=== PATIENT | female | born 1930 | race Hispanic/Latino ===

== ENCOUNTER 2017-05-28 15:58 | Emergency (ER) | payer OTHER ==
[2017-05-28 16:43] VITALS: BMI 22.1
[2017-05-28 20:14] VITALS: PULSE 80; RESP 18; TEMP 98.3
--- NOTE | 2017-05-28 21:40 | ED PDOC ---
Arrival/HPI - General Chief Complaint: Upper Extremity Problem/Injury Time Seen by Provider: 05/28/17 18:02 Historian: Patient - History of Present Illness Narrative History of Present Illness (Text): 05/28/17 21:37 87yo female with PMHx of CAD and cardiac stent present with complaint of right sided ribs pain s/p trauma. Patient states she fell while going down stairs and hit her right ribs against the stair railing while trying to hold on to the railing. The daughter was there when she fell. She denies LOC, focal weakness, back pain, any other complaint. Past Medical History - Provider Review Nursing Documentation Reviewed: Yes - Infectious Disease Hx of Infectious Diseases: None - Tetanus Immunization Tetanus Immunization: Up to Date - Cardiac Hx [place]: Yes (stent) Hx Hypertension: Yes Hx Internal Defibrillator: Yes Hx Pacemaker: Yes Other/Comment: defibrillator. stent placement - Musculoskeletal/Rheumatological Hx Falls: Yes - Psychiatric Hx Depression: No Hx Emotional Abuse: No Hx Physical Abuse: No Hx Substance Use: No - Past Surgical History Past Surgical History: No Previous - Surgical History Hx Cardiac Catheterization: Yes Hx Coronary Stent: Yes (x1) - Anesthesia Hx Anesthesia: Yes Hx Anesthesia Reactions: No Hx Malignant Hyperthermia: No - Suicidal Assessment Feels Threatened In Home Enviroment: No Family/Social History - Physician Review Nursing Documentation Reviewed: Yes Family/Social History: Unknown Family HX Smoking Status: Never Smoked Hx Alcohol Use: Yes (1 glass wine daily) Hx Substance Use: No Hx Substance Use Treatment: No Allergies/Home Meds Allergies/Adverse Reactions: Allergies No Known Allergies Allergy (Verified 12/29/12 11:05) Home Medications: Home Meds Medication Instructions Recorded Confirmed Metoprolol Succinate [Toprol XL] 50 mg PO DAILY 12/29/12 05/28/17 Potassium Chloride [K-Dur 20] 20 meq PO DAILY 12/29/12 05/28/17 Warfarin [Coumadin] 2.5 mg PO DAILY 12/29/12 05/28/17 Aspirin [Ecotrin] 1 tab PO DAILY 05/28/17 05/28/17 Folic Acid [Folic Acid] 1 tab PO DAILY 05/28/17 05/28/17 Lisinopril/Hydrochlorothiazide 1 tab PO DAILY 05/28/17 05/28/17 [Lisinopril-Hctz 10-12.5 mg Tab] Simvastatin [Zocor] 1 tab PO DAILY 05/28/17 05/28/17 Review of Systems - Physician Review All systems were reviewed & negative as marked: Yes - Review of Systems Constitutional: Normal Eyes: Normal ENT: Normal Respiratory: Normal Cardiovascular: Normal Gastrointestinal: Normal Genitourinary Female: Normal Musculoskeletal: Arthralgias (Right rib pain) Skin: Normal Neurological: Normal Endocrine: Normal Hemo/Lymphatic: Normal Psychiatric: Normal Physical Exam Vital Signs Reviewed: Yes Vital Signs Temp Pulse Resp BP Pulse Ox 05/28/17 20:14 80 18 138/70 99 05/28/17 15:59 98.3 F 76 18 146/76 98 Temperature: Afebrile Blood Pressure: Normal Pulse: Regular Respiratory Rate: Normal Appearance: Positive for: Well-Appearing, Non-Toxic, Comfortable Pain Distress: None Mental Status: Positive for: Alert and Oriented X 3 - Systems Exam Head: Present: Atraumatic, Normocephalic Pupils: Present: PERRL Extroacular Muscles: Present: EOMI Conjunctiva: Present: Normal Mouth: Present: Moist Mucous Membranes Neck: Present: Normal Range of Motion Respiratory/Chest: Present: Clear to Auscultation, Good Air Exchange, Tender to Palpation (Right lateral rib). No: Respiratory Distress, Accessory Muscle Use, Wheezes, Decreased Breath Sounds, Rales, Retracting, Rhonchi Cardiovascular: Present: Regular Rate and Rhythm, Normal S1, S2. No: Murmurs Abdomen: Present: Normal Bowel Sounds. No: Tenderness, Distention, Peritoneal Signs Back: Present: Normal Inspection Upper Extremity: Present: Normal Inspection. No: Cyanosis, Edema Lower Extremity: Present: Normal Inspection. No: Edema Neurological: Present: GCS=15, CN II-XII Intact, Speech Normal, Motor Func Grossly Intact, Normal Sensory Function, Normal Cerebellar Funct, Memory Normal , Other (No focal neurological deficit) Skin: Present: Warm, Dry, Normal Color. No: Rashes Psychiatric: Present: Alert, Oriented x 3, Normal Insight, Normal Concentration Medical Decision Making ED Course and Treatment: 05/28/17 21:40 right rib series - 3rd rib fracture noted Head CT no acute finding. Result was DW the pt. Pt was told that they could be possible fracture of more ribs. Rx of Tramadol given. Referred to her PMD. - RAD Interpretation Radiology Orders: 05/28/17 18:02 HEAD W/O CONTRAST [CT] Stat RIBS RIGHT & PA CHEST [RAD] Stat 05/28/17 18:03 SHOULDER RIGHT [RAD] Stat - Medication Orders Current Medication Orders: Discontinued Medications Tramadol HCl (Ultram) 50 mg PO STAT STA Stop: 05/28/17 18:04 Last Admin: 05/28/17 18:36 Dose: 50 mg MAR Pain Assessment Document 05/28/17 18:36 SRE (Rec: 05/28/17 18:37 SRE [id number]) Pain Reassessment Is this a pain reassessment? Yes Sleep Is patient sleeping during reassessment? No Presence of Pain Presence of Pain Yes Pain Scale Used Pain Scale Used Numeric Location Left, Right or Bilateral Right Pain Location Body Site Chest Description Description Constant Disposition/Present on Arrival - Present on Arrival Any Indicators Present on Arrival: No History of DVT/PE: No History of Uncontrolled Diabetes: No Urinary Catheter: No History of Decub. Ulcer: No History Surgical Site Infection Following: None - Disposition Have Diagnosis and Disposition been Completed?: Yes Diagnosis: Rib fracture Disposition: HOME/ ROUTINE Disposition Time: 21:25 Patient Plan: Discharge Condition: STABLE Discharge Instructions (ExitCare): Rib Fracture (ED) Additional Instructions: Follow up with your doctor Return to ED for any new or worsening symptoms Prescriptions: traMADol [Ultram] 50 mg PO TID #12 tab Referrals: Van Ramon MD [Primary Care Provider] - Follow up with primary
[2017-05-28 22:11] VITALS: BP 135/80; O2SAT 100
--- NOTE | 2017-05-29 07:51 | CT ---
PROCEDURE: CT HEAD WITHOUT CONTRAST. HISTORY: head injury COMPARISON: 12/30/2012 TECHNIQUE: Axial computed tomography images were obtained through the head/brain without intravenous contrast. Radiation dose: Total exam DLP = 1013 mGy-cm. This CT exam was performed using one or more of the following dose reduction techniques: Automated exposure control, adjustment of the mA and/or kV according to patient size, and/or use of iterative reconstruction technique. FINDINGS: HEMORRHAGE: No intracranial hemorrhage. BRAIN: No mass effect or edema. Severe chronic microvascular changes are seen. There is mild atrophy VENTRICLES: Unremarkable. No hydrocephalus. CALVARIUM: Unremarkable. PARANASAL SINUSES: Unremarkable as visualized. No significant inflammatory changes. MASTOID AIR CELLS: Unremarkable as visualized. No inflammatory changes. OTHER FINDINGS: Old fracture deformity of the right zygomatic arch IMPRESSION: No acute findings
--- NOTE | 2017-05-29 08:32 | RAD ---
PROCEDURE: Radiographs of the Right Shoulder HISTORY: right arm pain COMPARISON: No prior. FINDINGS: BONES: There is a questionable nondisplaced fracture of the body of the scapula best seen on the transscapular view (series 5, image 1). Please correlate clinically. No other fracture identified. JOINTS: Mild glenohumeral osteoarthritis. Mild acromioclavicular degenerative arthritis. SOFT TISSUES: Normal. OTHER FINDINGS: None. IMPRESSION: Question of nondisplaced fracture of the body of the scapula, laterally. Please correlate clinically and consider further radiographic evaluation. No other fracture.
--- NOTE | 2017-05-29 08:36 | RAD ---
PROCEDURE: Radiographs of the Chest and Right Ribs. HISTORY: right rib pain s/p trauma COMPARISON: None available. TECHNIQUE: Frontal radiograph of the chest and multiple oblique radiographs of the right ribs were obtained. FINDINGS: RIGHT RIBS: There are fractures of the right 4th through 9th ribs laterally. There is mild displacement of the 8th and 9th rib fractures. There is no evidence of pneumothorax or hemothorax. LUNGS: Clear. PLEURA: No pneumothorax or pleural fluid. CARDIOVASCULAR: The heart is mildly enlarged. There is curvilinear calcification at the cardiac apex suggestive of calcified left ventricular aneurysm. Consider correlation with echocardiography. An AICD is noted. OTHER FINDINGS: None. IMPRESSION: Multiple right rib fractures with displacement of the right 8th and 9th rib fractures. 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 Mild cardiomegaly. No hemothorax or pneumothorax.
== END 2017-05-28 21:50 | disposition home or self-care (01) ==
LOC: ED 15:58
DX: S22.41XA Multiple fractures of ribs, right side, initial encounter for closed fracture (principal); W10.8XXA Fall (on) (from) other stairs and steps, initial encounter; Y92.89 Other specified places as the place of occurrence of the external cause

== ENCOUNTER 2018-01-04 11:39 | Emergency (ER) | payer OTHER ==
[2018-01-04 11:40] VITALS: BMI 22.1
[2018-01-04 11:53] VITALS: RESP 18
--- NOTE | 2018-01-04 12:09 | ED PDOC ---
Arrival/HPI - General Chief Complaint: Back Pain Time Seen by Provider: 01/04/18 11:52 Historian: Patient - History of Present Illness Narrative History of Present Illness (Text): 01/04/18 12:10 87 year old female, with a past medical history of Coronary Artery Disease and cardiac stent, presents to the emergency department with left sided back pain status post a fall 2 days prior. Patient states she may have tripped on a power cord of her portable AC. Patient states she fell onto her side, and the AC unit also fell on her. Patient states she has been having back pain on her left side, and left flank. Patient states she takes Coumadin for her Atrial fibrillation. Patient denies hitting her head in the fall, and any fever, chills, headache, dizziness, cough, chest pain, shortness of breath, abdominal pain, nausea, vomiting, diarrhea, neck pain, urinary/bowel changes or any other complaint. Time/Duration: < week (fall occured 2 days ago) Symptom Onset: Gradual Symptom Course: Unchanged Quality: Aching Activities at Onset: Light Context: Home Past Medical History - Provider Review Nursing Documentation Reviewed: Yes - Infectious Disease Hx of Infectious Diseases: None - Tetanus Immunization Tetanus Immunization: Up to Date - Reproductive Menopause: Yes - Cardiac Hx [place]: Yes (stent) Hx Hypertension: Yes Hx Internal Defibrillator: Yes Hx Pacemaker: Yes Other/Comment: defibrillator. stent placement - Musculoskeletal/Rheumatological Hx Falls: Yes - Psychiatric Hx Depression: No Hx Emotional Abuse: No Hx Physical Abuse: No Hx Substance Use: No - Past Surgical History Past Surgical History: No Previous - Surgical History Hx Cardiac Catheterization: Yes Hx Coronary Stent: Yes (x1) - Anesthesia Hx Anesthesia: Yes Hx Anesthesia Reactions: No Hx Malignant Hyperthermia: No - Suicidal Assessment Feels Threatened In Home Enviroment: No Family/Social History - Physician Review Nursing Documentation Reviewed: Yes Family/Social History: No Known Family HX Smoking Status: Never Smoked Hx Alcohol Use: Yes (1 glass wine daily) Hx Substance Use: No Hx Substance Use Treatment: No Allergies/Home Meds Allergies/Adverse Reactions: Allergies No Known Allergies Allergy (Verified 01/04/18 11:53) Home Medications: Home Meds Medication Instructions Recorded Confirmed Metoprolol Succinate XL [Toprol XL] 50 mg PO DAILY 12/29/12 05/28/17 Potassium Chloride [K-Dur 20] 20 meq PO DAILY 12/29/12 05/28/17 Warfarin [Coumadin] 2.5 mg PO DAILY 12/29/12 05/28/17 Aspirin [Ecotrin] 1 tab PO DAILY 05/28/17 05/28/17 Folic Acid [Folic Acid] 1 tab PO DAILY 05/28/17 05/28/17 Lisinopril/Hydrochlorothiazide 1 tab PO DAILY 05/28/17 05/28/17 [Lisinopril-Hctz 10-12.5 mg Tab] Simvastatin [Zocor] 1 tab PO DAILY 05/28/17 05/28/17 Review of Systems - Physician Review All systems were reviewed & negative as marked: Yes - Review of Systems Constitutional: absent: Fevers, Night Sweats Eyes: Normal ENT: Normal Respiratory: absent: SOB, Cough Cardiovascular: absent: Chest Pain Gastrointestinal: absent: Abdominal Pain, Diarrhea, Nausea, Vomiting Genitourinary Female: Normal Musculoskeletal: Back Pain. absent: Neck Pain Skin: Normal Neurological: Normal. absent: Headache, Dizziness Endocrine: Normal Hemo/Lymphatic: Normal Psychiatric: Normal Physical Exam Vital Signs Reviewed: Yes Vital Signs Temp Pulse Resp BP Pulse Ox 01/04/18 15:08 98 F 78 18 138/77 98 01/04/18 13:33 72 18 157/79 H 99 01/04/18 13:12 79 18 133/77 98 01/04/18 11:51 98.3 F 84 18 138/47 L 96 Temperature: Afebrile Blood Pressure: Normal Pulse: Regular Respiratory Rate: Normal Appearance: Positive for: Well-Appearing, Non-Toxic, Comfortable Pain Distress: None Mental Status: Positive for: Alert and Oriented X 3 - Systems Exam Head: Present: Atraumatic, Normocephalic Pupils: Present: PERRL Extroacular Muscles: Present: EOMI Conjunctiva: Present: Normal Mouth: Present: Moist Mucous Membranes Neck: Present: Normal Range of Motion Respiratory/Chest: Present: Clear to Auscultation, Good Air Exchange. No: Respiratory Distress, Accessory Muscle Use Cardiovascular: Present: Regular Rate and Rhythm, Normal S1, S2. No: Murmurs Abdomen: No: Tenderness, Distention, Peritoneal Signs Back: Present: Normal Inspection Upper Extremity: Present: Normal Inspection. No: Cyanosis, Edema Lower Extremity: Present: Normal Inspection. No: Edema Neurological: Present: GCS=15, CN II-XII Intact, Speech Normal Skin: Present: Warm, Dry, Normal Color. No: Rashes Psychiatric: Present: Alert, Oriented x 3, Normal Insight, Normal Concentration Medical Decision Making ED Course and Treatment: 01/04/18 12:12 Impression: 87 year old female presents to the emergency department with left sided back pain, status post fall. Plan: -- Labs -- Chest X-ray -- Urinalysis -- Reassess and disposition Prior Visits: Notes and results from previous visits were reviewed. Progress Notes: 01/04/18 12:56 Chest X-ray reviewed by radiologist, shows: No active disease. 01/04/18 14:35 CT Chest, Abdomen and Pelvis reviewed by radiologist, shows: Severe T12 compression fracture, age uncertain. No acute intrathoracic or intra-abdominal findings 01/04/18 15:[address] finding of t12 compression fx. no vertebral tenderness. i suggested pt be admitted to the hospital for specialist and mri eval to determine chronicity , however she declines. i went over all results with the patient and explained in detail her findings. she still declines further eval and possible admission. she states she prefers to f/u outpt with her pmd. - Lab Interpretations Lab Results: 01/04/18 12:15 01/04/18 12:15 Lab Results 01/04/18 13:15: Urine Color Yellow, Urine Appearance Sl cloudy, Urine pH 6.5, Ur Specific [place] 1.020, Urine Protein Negative, Urine Glucose (UA) Negative, Urine Ketones Negative, Urine Blood Trace-intact H, Urine Nitrate Negative, Urine Bilirubin Negative, Urine Urobilinogen 0.2, Ur Leukocyte Esterase Small H , Urine RBC 0 - 2, Urine WBC 1 - 3 01/04/18 12:15: Sodium 135, Potassium 3.5 L, Chloride 100, Carbon Dioxide 24, Anion Gap 15, BUN 22 H, Creatinine 0.6 L, Est GFR ( Amer) > 60, Est GFR ( Non-Af Amer) > 60, Random Glucose 101, Calcium 9.9, Total Bilirubin 0.6, AST 38 H, ALT 21, Alkaline Phosphatase 101, Total Protein 8.4 H, Albumin 4.2, Globulin 4.2, Albumin/Globulin Ratio 1.0 L 01/04/18 12:15: PT 37.3 H, INR 3.20, APTT 49.1 H 01/04/18 12:15: WBC 5.5, RBC 3.31 L, Hgb 10.2 L, Hct 29.3 L, MCV 88.5, MCH 30.8 , MCHC 34.8, RDW 13.7, Plt Count 217, MPV 8.6, Gran % 63.0, Lymph % (Auto) 27.4 , [place] % (Auto) 7.6 H, Eos % (Auto) 1.8, Baso % (Auto) 0.2, Gran # 3.47, Lymph # (Auto) 1.5, [place] # (Auto) 0.4, Eos # (Auto) 0.1, Baso # (Auto) 0.01 - RAD Interpretation Radiology Orders: 01/04/18 12:01 CXR [CHEST PORTABLE] [RAD] Stat 01/04/18 13:01 CHEST,ABD,PEL W/IV CONT ONLY [CT] Stat - Scribe Statement The provider has reviewed the documentation as recorded by the Scribe Kaden Houston All medical record entries made by the Scribe were at my direction and personally dictated by me. I have reviewed the chart and agree that the record accurately reflects my personal performance of the history, physical exam, medical decision making, and the department course for this patient. I have also personally directed, reviewed, and agree with the discharge instructions and disposition. Disposition/Present on Arrival - Present on Arrival Any Indicators Present on Arrival: No History of DVT/PE: No History of Uncontrolled Diabetes: No Urinary Catheter: No History of Decub. Ulcer: No History Surgical Site Infection Following: None - Disposition Have Diagnosis and Disposition been Completed?: Yes Diagnosis: Fall, Compression fracture Disposition: HOME/ ROUTINE Disposition Time: 03:00 Condition: STABLE Discharge Instructions (ExitCare): Vertebral Compression Fracture, Preventing Falls in the Older Adult Additional Instructions: you are declining admission and evalation of your thorasic compression fracture. please discuss your results with your doctor. return to er with worsening symptoms or concerns. Referrals: [facility] [Outside] - [place] up with [place] [facility] [place] [facility] [place] - Follow up with primary Adan Dennis DO [Staff Provider] - Follow up with primary Van Ramon MD [Primary Care Provider] - Follow up with primary Forms: [employer] (Greenlandic)
[2018-01-04 12:50] LABS: BASO # 0.01 K/mm3 (0.0-2.0); BASO % 0.2 % (0.0-3.0); EOS # 0.1 (0.0-0.7); EOS % 1.8 % (1.5-5.0); GRAN # 3.47 (1.4-6.5); HEMOGLOBIN 10.2 g/dL (12.0-16.0); LYMPH # 1.5 (1.2-3.4); LYMPH % 27.4 % (22.0-35.0); MEAN CELL VOLUME 88.5 fl (80.0-105.0); MEAN CORPUSCULAR HEMOGLOBIN 30.8 pg (25.0-35.0); MEAN CORPUSCULAR HGB CONC 34.8 g/dl (31.0-37.0); MEAN PLATELET VOLUME 8.6 fl (7.0-11.0); MONO # 0.4 (0.1-0.6); MONO % 7.6 % (1.0-6.0); RBC 3.31 10^6/uL (3.5-6.1); RED CELL DISTRIBUTION WIDTH 13.7 % (11.5-14.5); WHITE BLOOD COUNT 5.5 10^3/ul (4.5-11.0)
--- NOTE | 2018-01-04 12:52 | RAD ---
Date of service: 01/04/2018 HISTORY: fall COMPARISON: 05/28/2017. FINDINGS: LUNGS: The lungs are well inflated and clear. PLEURA: No significant pleural effusion identified, no pneumothorax apparent. CARDIOVASCULAR: There is mild cardiomegaly. There is stable position of left-sided permanent pacing device. Atherosclerotic aortic arch calcifications are present. OSSEOUS STRUCTURES: Within normal limits for the patient's age. VISUALIZED UPPER ABDOMEN: Normal. OTHER FINDINGS: Partially calcified left breast implant IMPRESSION: No acute findings.
[2018-01-04 13:00] LABS: INR 3.2; PARTIAL THROMBOPLASTIN TIME 49.1 Seconds (25.1-36.5); PROTHROMBIN TIME 37.3 SECONDS (9.4-12.5)
[2018-01-04 13:01] LABS: ALBUMIN 4.2 g/dL (3.0-4.8); ALT/SGPT 21 U/L (7-56); AST/SGOT 38 U/L (14-36); BLOOD UREA NITROGEN 22 mg/dL (7-21); CALCIUM 9.9 mg/dL (8.4-10.5); GFR NON-AFRICAN AMERICAN > 60
[2018-01-04] MEDS ORDERED: Iohexol 350 MG/100 ML VIAL ONE (13:07)
[2018-01-04 13:21] LABS: PH,URINE 6.5 (4.7-8.0); URINE BILIRUBIN NEGATIVE (NEGATIVE); URINE BLOOD TRACE-INTACT (NEGATIVE); URINE GLUCOSE (UA) NEGATIVE (NEGATIVE); URINE LEUKOCYTE ESTERASE SMALL Leu/uL (NEGATIVE); URINE PROTEIN NEGATIVE mg/dL (<30 mg/dL); URINE UROBILINOGEN 0.2 E.U./dL (<1 E.U./dL)
[2018-01-04 13:25] LABS: URINE APPEARANCE SL CLOUDY (CLEAR); URINE COLOR YELLOW (YELLOW)
[2018-01-04 13:52] LABS: URINE RBC 0 - 2 /hpf (0-2)
--- NOTE | 2018-01-04 14:12 | CT ---
Date of service: 01/04/2018 PROCEDURE: CT Chest, Abdomen and Pelvis with intravenous contrast HISTORY: fall on warfarin, left posterior rib/left flank pa COMPARISON: None available. TECHNIQUE: IV dose administered: 100 cc of Omni 350 Radiation dose: Total exam DLP = 415 mGy-cm. This CT exam was performed using one or more of the following dose reduction techniques: Automated exposure control, adjustment of the mA and/or kV according to patient size, and/or use of iterative reconstruction technique. FINDINGS: CT CHEST WITH CONTRAST: LUNGS: Linear scarring at both lung bases. The lungs are otherwise clear MEDIASTINUM: Unremarkable. Normal caliber aorta and pulmonary arterial trunk. No aortic dissection. Normal size heart. Coronary artery calcifications. There is linear calcification in the left ventricle with mural thinning. LYMPH NODES: Unremarkable. PLEURA: Unremarkable. No pneumothorax. No pleural fluid. BONES: Unremarkable. OTHER FINDINGS: None. CT ABDOMEN AND PELVIS: LIVER: Unremarkable. No gross lesion or ductal dilatation. GALLBLADDER AND BILE DUCTS: Unremarkable. PANCREAS: Unremarkable. No gross lesion or ductal dilatation. SPLEEN: Unremarkable. ADRENALS: Unremarkable. No mass. KIDNEYS AND URETERS: Unremarkable. No hydronephrosis. No solid mass. VASCULATURE: Unremarkable. No aortic aneurysm. BOWEL: Unremarkable. No obstruction. No gross mural thickening. APPENDIX: Normal appendix. PERITONEUM: Unremarkable. No free fluid. No free air. LYMPH NODES: Unremarkable. No enlarged lymph nodes. BLADDER: Unremarkable. REPRODUCTIVE: Unremarkable. BONES: Severe compression fracture of T12, age uncertain multilevel disc degeneration. OTHER FINDINGS: None. IMPRESSION: Severe T12 compression fracture, age uncertain. No acute intrathoracic or intra-abdominal findings
[2018-01-04 15:11] VITALS: BP 138/77; PULSE 78; TEMP 98; O2SAT 98
== END 2018-01-04 15:08 | disposition home or self-care (01) ==
LOC: ED 11:39
DX: S22.089A Unspecified fracture of T11-T12 vertebra, initial encounter for closed fracture (principal); W01.0XXA Fall on same level from slipping, tripping and stumbling without subsequent striking against object, initial encounter; Y92.009 Unspecified place in unspecified non-institutional (private) residence as the place of occurrence of the external cause; I10 Essential (primary) hypertension; I25.10 Atherosclerotic heart disease of native coronary artery without angina pectoris; I48.91 Unspecified atrial fibrillation; Z79.01 Long term (current) use of anticoagulants; Z95.0 Presence of cardiac pacemaker
CPT/HCPCS: 71045; 71260; 74177; 80053; 81001; 85025; 85610; 85730; 87086; 99284; Q9967

== ENCOUNTER 2018-01-05 12:13 | Emergency (ER) | payer OTHER ==
[2018-01-05 12:14] VITALS: BMI 22.1
[2018-01-05 12:29] VITALS: RESP 17; TEMP 97.7; O2SAT 97
[2018-01-05 13:17] VITALS: BP 138/68; PULSE 70
--- NOTE | 2018-01-05 13:20 | ED PDOC ---
Arrival/HPI - General Chief Complaint: Back Pain Time Seen by Provider: 01/05/18 12:30 Historian: Patient - History of Present Illness Narrative History of Present Illness (Text): 01/05/18 13:15 87 year old female, with a past medical history of Coronary Artery Disease and cardiac stent, presents to the emergency department with left sided back pain status post a fall 3 days prior. Patient was seen in the emergency department yesterday by me, when she refused admission. Patient has returned stating she did not know what she was suppose to do now. Patient states her pain has improved, and is located only lateral flanks. The patient denies fevers, chills , headache, dizziness, sore throat, cough, chest pain, shortness of breath, dyspnea on exertion, abdominal pain, nausea, vomiting, diarrhea, neck/back pain , urinary/bowel changes or any other complaint. Time/Duration: > week (3 days prior) Quality: Aching Past Medical History - Provider Review Nursing Documentation Reviewed: Yes - Infectious Disease Hx of Infectious Diseases: None - Tetanus Immunization Tetanus Immunization: Up to Date - Cardiac Hx NC: Yes (stent) Hx Hypertension: Yes Hx Internal Defibrillator: Yes Hx Pacemaker: Yes Other/Comment: defibrillator. stent placement - Musculoskeletal/Rheumatological Hx Falls: Yes - Psychiatric Hx Substance Use: No - Past Surgical History Past Surgical History: No Previous - Surgical History Hx Cardiac Catheterization: Yes Hx Coronary Stent: Yes (x1) - Anesthesia Hx Anesthesia: Yes Hx Anesthesia Reactions: No Hx Malignant Hyperthermia: No - Suicidal Assessment Feels Threatened In Home Enviroment: No Family/Social History - Physician Review Nursing Documentation Reviewed: Yes Family/Social History: No Known Family HX Smoking Status: Never Smoked Hx Alcohol Use: Yes (1 glass wine daily) Frequency of alcohol use: Socially Hx Substance Use: No Hx Substance Use Treatment: No Allergies/Home Meds Allergies/Adverse Reactions: Allergies No Known Allergies Allergy (Verified 01/05/18 12:30) Home Medications: Home Meds Medication Instructions Recorded Confirmed Metoprolol Succinate XL [Toprol XL] 50 mg PO DAILY 12/29/12 01/05/18 Potassium Chloride [K-Dur 20] 20 meq PO DAILY 12/29/12 01/05/18 Warfarin [Coumadin] 2.5 mg PO DAILY 12/29/12 01/05/18 Aspirin [Ecotrin] 1 tab PO DAILY 05/28/17 01/05/18 Folic Acid [Folic Acid] 1 tab PO DAILY 05/28/17 01/05/18 Lisinopril/Hydrochlorothiazide 1 tab PO DAILY 05/28/17 01/05/18 [Lisinopril-Hctz 10-12.5 mg Tab] Simvastatin [Zocor] 1 tab PO DAILY 05/28/17 01/05/18 Review of Systems - Physician Review All systems were reviewed & negative as marked: Yes - Review of Systems Constitutional: Normal. absent: Fevers, Night Sweats Eyes: Normal ENT: Normal. absent: Sore Throat Respiratory: Normal. absent: SOB, Cough Cardiovascular: Normal. absent: Chest Pain Gastrointestinal: Normal. absent: Abdominal Pain, Diarrhea, Nausea, Vomiting Genitourinary Female: Normal. absent: Urine Output Changes Musculoskeletal: Normal. absent: Back Pain, Neck Pain Skin: Normal Neurological: Normal. absent: Headache, Dizziness Endocrine: Normal Hemo/Lymphatic: Normal Psychiatric: Normal Physical Exam Vital Signs Reviewed: Yes Vital Signs Temp Pulse Resp BP Pulse Ox 01/05/18 13:16 97.7 F 70 17 138/68 97 01/05/18 13:15 97.7 F 70 17 138/68 97 01/05/18 12:26 97.7 F 74 17 148/60 97 Temperature: Afebrile Blood Pressure: Normal Pulse: Regular Respiratory Rate: Normal Appearance: Positive for: Well-Appearing, Non-Toxic, Comfortable Pain Distress: None Mental Status: Positive for: Alert and Oriented X 3 - Systems Exam Head: Present: Atraumatic, Normocephalic Pupils: Present: PERRL Extroacular Muscles: Present: EOMI Conjunctiva: Present: Normal Mouth: Present: Moist Mucous Membranes Neck: Present: Normal Range of Motion Respiratory/Chest: Present: Clear to Auscultation, Good Air Exchange. No: Respiratory Distress, Accessory Muscle Use Cardiovascular: Present: Regular Rate and Rhythm, Normal S1, S2. No: Murmurs Abdomen: No: Tenderness, Distention, Peritoneal Signs Back: Present: Normal Inspection Upper Extremity: Present: Normal Inspection. No: Cyanosis, Edema Lower Extremity: Present: Normal Inspection. No: Edema Neurological: Present: GCS=15, CN II-XII Intact, Speech Normal Skin: Present: Warm, Dry, Normal Color. No: Rashes Psychiatric: Present: Alert, Oriented x 3, Normal Insight, Normal Concentration Medical Decision Making ED Course and Treatment: 01/05/18 13:21 Impression: 87 year old female presents for followup evaluation status post emergency department visit yesterday for back pain. Plan: -- Tylenol -- Reassess and disposition Prior Visits: Notes and results from previous visits were reviewed. Progress Notes: Requested that patient be admitted for further management. Patient initially consented, but now refuses. Paged her PMD Dr Mazariegos to discuss her case. 01/05/18 13:[address] Mazariegos's nurse who agreed to see patient as outpatient. 01/06/18 07:15 case later discussed with dr mazariegos. as pt declines admisison will manage as outpt. - Medication Orders Current Medication Orders: Discontinued Medications Acetaminophen (Tylenol 325mg Tab) 975 mg PO STAT STA Stop: 01/05/18 12:43 - Scribe Statement The provider has reviewed the documentation as recorded by the Scribe Kaden Houston All medical record entries made by the Scribe were at my direction and personally dictated by me. I have reviewed the chart and agree that the record accurately reflects my personal performance of the history, physical exam, medical decision making, and the department course for this patient. I have also personally directed, reviewed, and agree with the discharge instructions and disposition. Disposition/Present on Arrival - Present on Arrival Any Indicators Present on Arrival: No History of DVT/PE: No History of Uncontrolled Diabetes: No Urinary Catheter: No History of Decub. Ulcer: No History Surgical Site Infection Following: None - Disposition Have Diagnosis and Disposition been Completed?: Yes Diagnosis: Compression fracture Disposition: HOME/ ROUTINE Disposition Time: 01:00 Condition: STABLE Discharge Instructions (ExitCare): Vertebral Compression Fracture Additional Instructions: you are again declining admission to the hospital and further inpatient managment. you are able to return at any time with any concern. dr mazariegos can see you on sunday. return to er with worsening symptoms or concers. Referrals: Van Mazariegos MD [Primary Care Provider] - Follow up with primary Forms: Goby (Nepali)
== END 2018-01-05 13:17 | disposition home or self-care (01) ==
LOC: ED 12:13
DX: T14.8XXA Other injury of unspecified body region, initial encounter (principal); W19.XXXA Unspecified fall, initial encounter; I10 Essential (primary) hypertension; I25.10 Atherosclerotic heart disease of native coronary artery without angina pectoris